=== PATIENT | female | born 1975 | race Caucasian/White ===

== ENCOUNTER 2025-01-11 13:25 | Outpatient (CLI) | payer OTHER, SELFPAY ==
[2025-01-11 21:51] LABS: Hematocrit* 40.1 % (33.0-51.0); Hemoglobin* 13.0 gm/dL (12.0-16.0); Immature Granulocytes Abs Auto 0.00 K/uL (0.00-0.30); Immature Granulocytes Pct Auto 0.0 %; Lymphocytes Absolute Auto 1.41 K/uL (0.90-2.90); Mean Corpuscular HGB Conc 32 gm/dL (32-36); Mean Corpuscular Hemoglobin 30 pg (26-34); Mean Corpuscular Volume 93 fL (80-100); RDW Coefficient of Variation % 12.8 % (11.5-15.5); Red Blood Count* 4.32 m/uL (4.00-5.20); White Blood Count* 5.92 K/uL (4.50-11.00)
[2025-01-11 21:58] LABS: Albumin* 4.1 g/dL (3.3-5.0)
[2025-01-11 22:01] LABS: Alanine Aminotransferase* 22 U/L (4-35); Aspartate Amino Transferase* 34 U/L (12-35); Creatinine* 0.7 mg/dL (0.5-1.5); Estimated Glomerular Filt Rate 106 ml/min
[2025-01-11 22:10] LABS: Slide Review Reflex No
[2025-01-13 10:53] LABS: CRP, High Sensitivity 1.5 mg/L (<=3.0)
== END 2025-01-11 13:26 | disposition home or self-care (01) ==
LOC: NPINS 13:28
PROVIDERS: PCP Nurse Practitioner Family; Visit Provider Internal Medicine
DX: M05.79 Rheumatoid arthritis with rheumatoid factor of multiple sites without organ or systems involvement (principal)
CPT/HCPCS: 82040; 82565; 84450; 84460; 85025; 86141

== ENCOUNTER 2025-04-02 08:20 | Outpatient (CLI) | payer OTHER, SELFPAY | END 2025-04-02 08:21 | disposition home or self-care (01) | LOC: NFLDREF 04-06 08:36 | PROVIDERS: PCP Nurse Practitioner Family; Referring Provider Nurse Practitioner Family; Visit Provider Nurse Practitioner Family | DX: E06.3 Autoimmune thyroiditis (principal); Z13.0 Encounter for screening for diseases of the blood and blood-forming organs and certain disorders involving the immune mechanism; Z13.6 Encounter for screening for cardiovascular disorders | CPT/HCPCS: 80053; 80061; 84443; 85025 ==